=== PATIENT | male | born 1980 | race Caucasian/White ===

== ENCOUNTER 2016-08-03 16:32 | Emergency (ER) | payer MEDICAID ==
[2016-08-03 16:37] VITALS: BP 120/69; PULSE 94; RESP 18; TEMP 98.4; O2SAT 98
--- NOTE | 2016-08-03 17:30 | EDPHY ---
HPI/HX/ROS/PE/MDM Narrative: CHIEF COMPLAINT: Cough HPI: The patient is a homeless 36 y/o male who upon initial assessment is curled up in the position and refusing to answer my questions. Eventually he tells me he's had a cough, subjective fever, and malaise for the last 3-4 days. He has not tried anything for his symptoms. He denies any pertinent medical history. REVIEW OF SYSTEMS: Aside from elements discussed in the HPI, a comprehensive 10-point review of systems was reviewed and is negative. PMH: Denies SOCIAL HISTORY: Homeless PHYSICAL EXAM: General:Patient is alert, in no acute distress. He is well-appearing. ENT:Eyes are normal to inspection. ENT inspection normal. Neck: Normal inspection. Full range of motion. Respiratory:No respiratory distress. Breath sounds normal bilaterally. Cardiovascular: Regular rate and rhythm. Strong peripheral pulses. Normal cap refill. Extremities: Normal appearance. Full range of motion. Neuro: Oriented x3. Normal motor function. Normal sensory function. ED Course: Flu swab and chest x-ray ordered. Study: Chest x-ray Indication: Cough Results: Chest x-ray was obtained. The results of the study are negative. The study was read by the radiologist, Dr. Patterson. I viewed the images myself on the PACS system. Flu swab negative. MDM: I informed the patient that his chest x-ray and flu swab were negative and then will your likely be discharged home. Upon hearing this, patient immediately appeared to wake up and began rapidly yelling at me. He is aggressive and uncooperative during assessment. He demands admission. He states, "I'm just letting you know I'll be back tomorrow cause I'll be sick as fuck! Just wait for me to come back sick as a fucking dog!" He then stood up, dressed himself, and walked out of the ED while cussing at staff. He appears to be seeking housing/secondary gain. - Data Points Laboratory Results: 08/03/16 17:50 Influenza Typ A,B (DFA) NEGATIVE FOR FLU (NEGATIVE) Medications Given: Discontinued Medications Acetaminophen (Tylenol) 1,000 mg PO EDNOW ONE Stop: 08/03/16 17:45 Last Admin: 08/03/16 17:59 Dose: 1,000 mg General Time Seen by Provider: 08/03/16 17:19 Initial Vital Signs: Initial Vital Signs Temperature (C) 36.9 C 08/03/16 16:35 Heart Rate 94 08/03/16 16:35 Respiratory Rate 18 08/03/16 16:35 Blood Pressure 120/69 08/03/16 16:35 O2 Sat (%) 98 08/03/16 16:35 O2 Delivery Mode Room Air Allergies/Adverse Reactions: No Known Allergies Allergy (Verified 08/03/16 16:34) Home Medications: Medication Instructions Recorded NK [No Known Home Meds] 08/03/16 Departure - Departure Disposition: Home, Routine, Self-Care Clinical Impression: Cough Condition: Good Instructions: Acute Cough (ED) Additional Instructions: 1. Use Tylenol or ibuprofen as directed on the packaging if needed for pain or fever. 2. Follow up with your primary care provider for symptoms not improved over the next 2-3 days. Referrals: NONE *PRIMARY CARE P,. [Primary Care Provider] - As per Instructions [facility] [Outside] - As per Instructions Report Scribed for: Amrit Burgos Report Scribed by: Maggie Singh Date of Report: 08/03/16 Time of Report: 17:30 Physician Review and Approval Statement: Portions of this note were transcribed by an ED scribe. I personally performed the history, physical exam, and medical decision making; and confirm the accuracy of the information in the transcribed note.
[2016-08-03] MEDS ORDERED: ACETAMINOPHEN 500 MG TAB PO ONE (17:44)
[2016-08-03] MEDS ORDERED: ACETAMINOPHEN 500 MG TAB ONE (17:45)
--- NOTE | 2016-08-03 17:53 | DX ---
Chest, Two Views at 1712 hours History: Cough, dyspnea. Comparison: Multiple studies from 2016 and 2015 Findings: Cardiac silhouette is within normal range. No pneumonia, congestive heart failure, pleural effusion, or pneumothorax. Impression: No focal pneumonia.
== END 2016-08-03 18:47 | disposition home or self-care (01) ==
DX: R05 Cough (principal)

== ENCOUNTER 2016-11-13 15:52 | Emergency (ER) | payer MEDICAID ==
--- NOTE | 2016-11-13 16:04 | EDPHY ---
H & P Source: Patient, EMS - Medical/Surgical History Hx Asthma: No Hx Chronic Respiratory Disease: No Hx Diabetes: No Hx Cardiac Disease: No Hx Renal Disease: No Hx Cirrhosis: No Hx Alcoholism: No Hx HIV/AIDS: No Hx Splenectomy or Spleen Trauma: No Other PMH: HTN, ETOH abuse, poly substance abuse: today admits to HASH and Meth - Social History Smoking Status: Current every day smoker Time Seen by Provider: 11/13/16 15:53 HPI/ROS: CHIEF COMPLAINT: Psychiatric evaluation HISTORY OF PRESENT ILLNESS: This patient is a homeless 36 year old male who presents to the Emergency Department via EMS for psychiatric evaluation. EMS was called by a bystander who saw the patient standing on a pile of rocks in the middle of the river at [address] [place] [address]. When they arrived, he appeared delusional and was combative, per their report. Upon arrival to the ED, he states, ""I don't give a fuck why they brought me here. I want to be left alone. " When asked what happened, he reports: "Me and God were having a conversation about me moving to [place] when the rescuers showed up. They were going to practice on me." He does not have any focal medical complaints. No fever, chills , chest pain, shortness of breath, palpitations, vomiting, diarrhea, urinary complaints, headache, or lightheadedness. No apparent suicidal or homicidal ideation. He states, "I just want to play my guitar and love people." REVIEW OF SYSTEMS: Aside from elements discussed in the HPI, a comprehensive 10-point review of systems was reviewed and is negative. PAST MEDICAL HISTORY: Unspecified mood disorder (Depakote, Ritalin). Followed by Dr. French Gracia at [facility]. SOCIAL HISTORY: Homeless. Admits to regular meth use "in moderation." Denies recent cocaine or heroine use. Smokes cigarettes daily. Drinks alcohol daily. PHYSICAL EXAM: VITAL SIGNS: Reviewed by me GENERAL: Wearing wet clothing, pressured speech, repeatedly states that he does not want to be here. HEENT: Atraumatic. Eyes: No icterus, no injection, pupils 3mm. Mouth: moist mucous membranes. No erythema or lesions. Neck: supple with no adenopathy. LUNGS: Clear to auscultation bilaterally, no wheezes, rhonchi or rales. CARDIAC: Regular rate and rhythm, no rubs, murmurs or gallops. ABDOMEN: Soft, nontender, nondistended, bowel sounds normal. BACK: No CVA tenderness. EXTREMITIES: No trauma. No edema. Range of motion is normal throughout. NEURO: Alert and oriented, grossly nonfocal. SKIN: Warm and dry, no rash. PSYCHIATRIC: Paranoid, mildly agitated. Portions of this note were transcribed by a medical collections representative. I personally performed a history, physical exam, medical decision making, and confirmed accuracy of information the transcribed note. (Daphne Piper) Constitutional: Initial Vital Signs Temperature (C) 36.7 C 11/13/16 15:58 Heart Rate 81 11/13/16 15:58 Respiratory Rate 18 11/13/16 15:58 Blood Pressure 120/81 H 11/13/16 15:58 O2 Sat (%) 97 11/13/16 15:58 O2 Delivery Mode Room Air Allergies/Adverse Reactions: No Known Allergies Allergy (Verified 08/03/16 16:34) Home Medications: Medication Instructions Recorded NK [No Known Home Meds] 08/03/16 Medical Decision Making ED Course/Re-evaluation: 1558: Took EMS report at bedside. This homeless 36-year-old male presents via EMS for psychiatric evaluation. He admits to meth use today. He smokes and drinks daily. Will proceed with labs and UA for med clearance prior to psychiatric evaluation. Patient placed on M1 hold by police. Patient required Haldol IM as well as Ativan as he became quite agitated and was very threatening. Patient has been placed on an M1 hold by the please. He has been medically cleared. Patient's care was assumed by Dr. Davis at 11:00 p.m.. Beau, from his EPS, is beginning his evaluation. (Daphne Piper) 6:45 a.m.- The patient remained stable overnight. He was evaluated by EPS and did admit to amphetamine use overnight though his urine toxicology was negative. He is certainly more lucid at this point and has not been threatening or agitated whatsoever. This could be effects of the Haldol. The patient will be watched in the emergency room, urine toxicology will be repeated. EPS will re-evaluate the patient in the morning. (Sophie Davis) Differential Diagnosis: Differential diagnosis of this patient was considered including but not limited to chronic psychosis, medication noncompliance, medication side effect, depression and illicit drug use. (Daphne Piper) Other Provider: I assumed care of the patient at 7 o'clock in the morning awaiting psychiatric placement. The patient was evaluated by Psychiatry. He is not suicidal, homicidal or gravely disabled. He presents to the ED with psychotic behavior likely precipitated by recreational drug use. At this point time the patient does contract for safety. He does plan to follow up with [facility] as an outpatient. He is agreeable to returning to the ED for any change in his disposition. The patient's case was discussed with the on-call psychiatrist with [facility] Dr. Cerda who recommends the hold the lifted. (Kyle Mc) - Data Points Laboratory Results: Laboratory Results 11/13/16 16:40 11/13/16 16:40 11/14/16 05:35 Urine Opiates Screen NEGATIVE (NEGATIVE) Urine Barbiturates NEGATIVE (NEGATIVE) Ur Phencyclidine Scrn NEGATIVE (NEGATIVE) Ur Amphetamine Screen NEGATIVE (NEGATIVE) U Benzodiazepines Scrn NON-NEGATIVE H (NEGATIVE) Urine Cocaine Screen NEGATIVE (NEGATIVE) U Marijuana (THC) Screen NEGATIVE (NEGATIVE) Medications Given: Discontinued Medications Haloperidol Lactate (Haldol Injection) 5 mg IM EDNOW ONE Stop: 11/13/16 17:03 Last Admin: 11/13/16 17:22 Dose: 5 mg Lorazepam (Ativan Injection) 1 mg IM EDNOW ONE Stop: 11/13/16 17:14 Last Admin: 11/13/16 17:22 Dose: 1 mg Departure - Departure Disposition: Home, Routine, Self-Care Clinical Impression: Acute psychosis, Polysubstance abuse Condition: Good Instructions: Polysubstance Abuse (ED) Additional Instructions: 1. Please follow-up with the mental health resources provided in the ED today. 2. [facility] does operate a 24/7 psychiatric crisis unit located at [facility] [facility]. The telephone number for the 24 hour crisis center is [phone]. 3. Please return to the ED if you are feeling suicidal, having thoughts of harming yourself/others or should you feel unsafe or have worsening symptoms. Referrals: [facility],. [Clinic] - As per Instructions Report Scribed for: Daphne Piper Report Scribed by: Carrol Jiang Date of Report: 11/13/16 Time of Report: 16:11
[2016-11-13 16:55] LABS: % IMMATURE GRANULYOCYTES 0.3 % (0.0-1.1); ABSOLUTE IMMATURE GRANULOCYTES 0.03 10^3/uL (0.00-0.10); ADD DIFF? NO; ADD MORPH? NO; ADD SCAN? NO; ATYPICAL LYMPHOCYTE FLAG 0 (0-99); FRAGMENT RBC FLAG 0 (0-99); HEMATOCRIT 44.7 % (40.0-51.0); HEMOGLOBIN 15.4 g/dL (13.7-17.5); LEFT SHIFT FLG 0 (0-99); LIPEMIA HEMOLYSIS FLAG 90 (0-99); MEAN CELL HEMOGLOBIN 30.4 pg (27.9-34.1); MEAN CELL HEMOGLOBIN CONCENTR. 34.5 g/dL (32.4-36.7); MEAN CELL VOLUME 88.2 fL (81.5-99.8); MEAN PLATELET VOLUME 8.8 fL (8.7-11.7); PLATELET CLUMPS FLAG 0 (0-99); PLATELET COUNT 274 10^3/uL (150-400); RED BLOOD CELL COUNT 5.07 10^6/uL (4.40-6.38); RED CELL DISTRIBUTION WIDTH 12.8 % (11.5-15.2)
[2016-11-13] MEDS ORDERED: HALOPERIDOL LACT 5 MG/ML INJ IM ONE (17:02)
[2016-11-13] MEDS ORDERED: LORazepam 2 MG/ML INJ ONE (17:10)
[2016-11-13 17:12] LABS: ANION GAP 11 mEq/L (8-16); CALCIUM 9.1 mg/dL (8.5-10.4); CARBON DIOXIDE 27 mEq/l (22-31); CHLORIDE 103 mEq/L (97-110); CREATININE 0.8 mg/dL (0.7-1.3); ETHANOL SERUM < 10 mg/dL (0-10); GLOMERULAR FILTRATION RATE > 60; GLUCOSE 101 mg/dL (70-100); SODIUM 141 mEq/L (134-144)
[2016-11-13] MEDS ORDERED: LORazepam 2 MG/ML INJ IM ONE (17:13)
[2016-11-13 18:16] VITALS: RESP 16
[2016-11-14 11:15] VITALS: BP 118/67; PULSE 74; TEMP 98.1; O2SAT 95
== END 2016-11-14 11:23 | disposition home or self-care (01) ==
LOC: EDUNIT#
DX: F23 Brief psychotic disorder (principal); F19.10 Other psychoactive substance abuse, uncomplicated; I10 Essential (primary) hypertension; F17.200 Nicotine dependence, unspecified, uncomplicated
CPT/HCPCS: 80305; G0480; J2060

== ENCOUNTER 2016-12-04 21:23 | Emergency (ER) | payer MEDICAID ==
[2016-12-04 21:34] VITALS: BP 112/74; PULSE 78; RESP 16; TEMP 97.7; O2SAT 94
--- NOTE | 2016-12-04 21:38 | EDPHY ---
H & P Stated Complaint: intoxicated no c/o sent by pd Time Seen by Provider: 12/04/16 21:33 HPI/ROS: Chief Complaint: Agitation HPI: 36-year-old homeless male was acting erratically and became agitated with police. EMS was called. Patient continued to be agitated and aggressive. Has a history of methamphetamine abuse but denies using it tonight. Patient states he very small amount of alcohol earlier today. He is not clinically intoxicated at this time. Denies falling down. Did not his head. Is not feeling suicidal or homicidal. Is oriented to person place and time. Patient is not under arrest. Is not hallucinating. Is just asking to be discharged. Patient has not been placed on a mental health hold. ROS: 10 point Review of Systems is negative except as noted in the HPI. PMH: Denies Social History: Positive smoking, positive alcohol, denies other drug use Family History: non-contributory Physical Exam: Gen: Awake, Alert, No Distress HEENT: Nose: no rhinorrhea Eyes: PERRLA, EOMI Mouth: Moist mucosa Neck: Supple, no JVD Chest: nontender, lungs clear to auscultation Heart: S1, S2 normal, no murmur Abd: Soft, non-tender, no guarding Back: no CVA tenderness, no midline tenderness Ext: no edema, non-tender Skin: no rash Neuro: CN II-XII intact, Sensation grossly intact, Strength 5/5 in bilateral upper and lower extremities - Personal History Current Tetanus/Diphtheria Vaccine: Unsure Current Tetanus Diphtheria and Acellular Pertussis (TDAP): Unsure - Medical/Surgical History Hx Asthma: No Hx Chronic Respiratory Disease: No Hx Diabetes: No Hx Cardiac Disease: No Hx Renal Disease: No Hx Cirrhosis: No Hx Alcoholism: No Hx HIV/AIDS: No Hx Splenectomy or Spleen Trauma: No Other PMH: HTN, ETOH abuse, poly substance abuse: today admits to HASH and Meth - Social History Smoking Status: Current every day smoker Constitutional: Initial Vital Signs Temperature (C) 36.5 C 12/04/16 21:30 Heart Rate 78 12/04/16 21:30 Respiratory Rate 16 12/04/16 21:30 Blood Pressure 112/74 12/04/16 21:30 O2 Sat (%) 94 12/04/16 21:30 O2 Delivery Mode Room Air Allergies/Adverse Reactions: No Known Allergies Allergy (Verified 08/03/16 16:34) Home Medications: Medication Instructions Recorded NK [No Known Home Meds] 08/03/16 Medical Decision Making ED Course/Re-evaluation: Patient initially quite agitated emergency department he calmed down during my conversation with him. Patient states that he just got upset around up with an interacting with the police. He denies being suicidal or homicidal. He is stating that he is actually just thirsty and hungry. Is not hallucinating. He is not clinically intoxicated. He is oriented to person place and time. There is no evidence of injury or abnormality on physical examination. He is appropriate for discharge to home. He has been encouraged to return for any concerns. Departure - Departure Disposition: Home, Routine, Self-Care Clinical Impression: Agitation Condition: Good Instructions: Anxiety (ED) Additional Instructions: Follow up with the [facility] for any concerns. Return emergency department for thoughts of hurting herself or others, hallucinations, increasing anxiety, chest pain, shortness of breath, or any other concerns. Referrals: NONE *PRIMARY CARE P,. [Primary Care Provider] - As per Instructions [facility],. [Clinic] - As per Instructions
== END 2016-12-04 21:55 | disposition home or self-care (01) ==
LOC: EDUNIT#
DX: R45.1 Restlessness and agitation (principal); I10 Essential (primary) hypertension; F17.200 Nicotine dependence, unspecified, uncomplicated

== ENCOUNTER 2016-12-23 12:47 | Emergency (ER) | payer MEDICAID ==
--- NOTE | 2016-12-23 12:57 | EDPHY ---
H & P Time Seen by Provider: 12/23/16 12:56 - Medical/Surgical History Hx Asthma: No Hx Chronic Respiratory Disease: No Hx Diabetes: No Hx Cardiac Disease: No Hx Renal Disease: No Hx Cirrhosis: No Hx Alcoholism: No Hx HIV/AIDS: No Hx Splenectomy or Spleen Trauma: No Other PMH: HTN, ETOH abuse, poly substance abuse: today admits to HASH and Meth - Social History Smoking Status: Current every day smoker Constitutional: Initial Vital Signs Temperature (C) 36 C 12/23/16 12:47 Heart Rate 124 H 12/23/16 12:47 Respiratory Rate 20 12/23/16 12:47 Blood Pressure 149/106 H 12/23/16 12:47 O2 Sat (%) 97 12/23/16 12:47 O2 Delivery Mode Room Air Allergies/Adverse Reactions: No Known Allergies Allergy (Verified 08/03/16 16:34) Home Medications: Medication Instructions Recorded NK [No Known Home Meds] 08/03/16 Medical Decision Making ED Course/Re-evaluation: CHIEF COMPLAINT: Medical clearance for [facility] HISTORY OF PRESENT ILLNESS: The patient is a 36 y/o male arriving in [employer] custody for a medical clearance for mental health evaluation at the [facility]. The patient has a history of substance abuse and unnamed mental health disorders. Upon assessment, he is standing on his bed yelling at officers while pulling his pants down and grabbing his penis. He is yelling multiple insults at the officers and screams, "tell these faggot ass niggers to leave me alone!" He denies specific medical complaints including chest pain, shortness of breath, or injuries and agrees to go with the officers to [facility] for a mental health evaluation. He is not cooperative with a complete medical exam. REVIEW OF SYSTEMS: A 10 point review of systems was performed and is negative with the exception of the elements mentioned in the history of present illness. PHYSICAL EXAM: General Appearance: Alert and screaming at staff, well hydrated, non-toxic appearing. Head: Atraumatic without scalp tenderness or obvious injury Eyes: Pupils equal, round, reactive to light and accommodation, EOMI, no trauma , no injection. Nose: Atraumatic, no rhinorrhea, clear. Throat: mucus membranes moist. Neck: Supple Respiratory: No distress Cardiovascular: Good capillary refill all extremities. Gastrointestinal: no visible trauma Musculoskeletal: Normal active ROM of all extremities, no visible traumatic. Neurological: Alert, screaming, and interactive. Moves all extremities. Skin: No rashes or visible trauma. Past medical history: Unknown Past surgical history: Unknown Family history: Unknown Social history: In [employer] custody DIFFERENTIAL DIAGNOSIS: The differential diagnosis for the patient's presentation included but was not limited to psychotic episode, schizophrenia, functional and major depression, situational depression, medication side effect , drugs, and alcohol abuse. MEDICAL DECISION MAKING: Patient is in no acute distress and is hemodynamically stable. He is medically clear for [facility] mental health evaluation. Departure - Departure Disposition: Home, Routine, Self-Care Clinical Impression: Psychotic disorder Qualifiers: Psychosis type: other Qualified Code(s): F28 - Other psychotic disorder not due to a substance or known physiological condition Condition: Good Instructions: At-Risk Alcohol Use (ED) Additional Instructions: Medically clear for mental health evaluation at [facility]. Referrals: Patient,NotPresent [Primary Care Provider] - As per Instructions [facility],. [Clinic] - As per Instructions Report Scribed for: Wojciech Del Real Report Scribed by: Maggie Singh Date of Report: 12/23/16 Time of Report: 14:26
[2016-12-23 13:07] VITALS: BP 149/106; PULSE 124; RESP 20; TEMP 96.8; O2SAT 97
== END 2016-12-23 13:06 | disposition home or self-care (01) ==
LOC: EDUNIT#
DX: F28 Other psychotic disorder not due to a substance or known physiological condition (principal); I10 Essential (primary) hypertension; F17.200 Nicotine dependence, unspecified, uncomplicated

== ENCOUNTER 2017-01-18 18:05 | Emergency (ER) | payer MEDICAID ==
[2017-01-18] MEDS ORDERED: LORazepam 2 MG/ML INJ IVP ONE (18:09)
--- NOTE | 2017-01-18 18:35 | EDPHY ---
H & P Stated Complaint: [employer] called EMS for poss. polypharm. pt shivering, incontinent of stool Time Seen by Provider: 01/18/17 18:06 HPI/ROS: CHIEF COMPLAINT: polysubstance abuse HISTORY OF PRESENT ILLNESS: 36-year-old male presents emergency department by EMS after they were called by police for polysubstance abuse. Patient was ambulatory on scene for EMS, tearful and incontinent of urine and stool. Patient is a homeless male well known to our facility with multiple visits for substance abuse who reports at 5 o'clock this morning he took 2 oxycodone, ate mushrooms, used IV meth and heroine. Pt reports he is unsure why he was brought to the emergency department. Patient was given 0.5 mg of Narcan EN route by EMS for reports of oxycodone use this morning. Patient was not sedated and had no response to Narcan. Patient complains of feeling cold. He denies other complaints. REVIEW OF SYSTEMS: A comprehensive 10 point review of systems is otherwise negative aside from elements mentioned in the history of present illness. Source: Patient, EMS - Personal History Current Tetanus/Diphtheria Vaccine: Unsure Current Tetanus Diphtheria and Acellular Pertussis (TDAP): Unsure - Medical/Surgical History Hx Asthma: No Hx Chronic Respiratory Disease: No Hx Diabetes: No Hx Cardiac Disease: No Hx Renal Disease: No Hx Cirrhosis: No Hx Alcoholism: No Hx HIV/AIDS: No Hx Splenectomy or Spleen Trauma: No Other PMH: HTN, ETOH abuse, poly substance abuse: today admits to HASH and Meth - Social History Smoking Status: Current every day smoker Alcohol Use: Heavy Drug Use: Cocaine, Heroin, Other (Methamphetamines, mushrooms) - Physical Exam Exam: Physical Exam Gen: Alert and Oriented, agitated, tearful HEENT: PERRL, moist mucous membranes NECK: no meningismus CV: regular rate and regular rhythm PULM: CTAB, no wheezes ABDOMEN: soft, non tender to palpation, BS present BACK: No CVA tenderness NEURO: Follows commands, no facial asymmetry, moves all extremities EXTREMITIES: normal appearing SKIN: no rash or break in skin on exposed skin PSYCH: Denies suicidal ideations, homicidal ideations, auditory and visual hallucinations. Constitutional: Initial Vital Signs Temperature (C) 36.2 C 01/18/17 18:25 Heart Rate 85 01/18/17 18:25 Respiratory Rate 22 H 01/18/17 18:25 Blood Pressure 142/104 H 01/18/17 18:25 O2 Sat (%) 98 01/18/17 18:25 O2 Delivery Mode Room Air Allergies/Adverse Reactions: No Known Allergies Allergy (Verified 08/03/16 16:34) Home Medications: Medication Instructions Recorded NK [No Known Home Meds] 08/03/16 Medical Decision Making ED Course/Re-evaluation: 36-year-old male presents by ambulance for polysubstance abuse. Patient is well known to our facility 4 visits pertaining to substance abuse. He states he used heroin, meth, mushrooms and oxycodone at 5 o'clock this morning, more than 12 hours prior to arrival. Patient complains of feeling cold. He is awake , alert and agitated. Patient was incontinent of urine and stool. He took a shower in the emergency department and reports feeling much better. Patient requesting to be discharged to the [facility]. Differential Diagnosis: Diagnosis including but not limited to chronic psychosis, medication noncompliance, medication side effect, depression and illicit drug use. Departure - Departure Disposition: Home, Routine, Self-Care Clinical Impression: Polysubstance abuse Condition: Good Instructions: Polysubstance Abuse (ED) Additional Instructions: 1. [facility] does operate a 24/ psychiatric crisis unit located at [facility]. The telephone number for the 24 hour crisis center is [phone]. 2. Please return to the ED if you are feeling suicidal, having thoughts of harming yourself/others or should you feel unsafe or have worsening symptoms. 3. Stop using drugs. Referrals: [facility],. [Clinic] - As per Instructions
[2017-01-18 19:13] VITALS: BP 135/78; PULSE 88; RESP 18; TEMP 97.7; O2SAT 95
== END 2017-01-18 19:13 | disposition home or self-care (01) ==
LOC: EDUNIT#
DX: F19.10 Other psychoactive substance abuse, uncomplicated (principal); I10 Essential (primary) hypertension; F17.200 Nicotine dependence, unspecified, uncomplicated
CPT/HCPCS: 96374

== ENCOUNTER 2017-01-21 23:08 | Emergency (ER) | payer MEDICAID ==
[2017-01-21 23:18] VITALS: O2SAT 97
[2017-01-22] MEDS ORDERED: SULFAMETHOX/TMP 800/160 MG 1 TAB PO SCH
[2017-01-22] MEDS ORDERED: CEPHALEXIN 500 MG CAP PO SCH
--- NOTE | 2017-01-22 00:08 | EDPHY ---
H & P Stated Complaint: RIGHT TOE BUG BITE Time Seen by Provider: 01/21/17 23:46 HPI/ROS: Chief Complaint: Right foot pain HPI: 36-year-old male presenting with several days of worsening right foot pain. Patient thinks he may have gotten a bug bite on his foot police had redness and swelling and warmth. He has been wearing she has a whole time and does not recall specific bite. Does have a history of similar in the past. Denies a history of gout. No fevers or chills. No nausea or vomiting. No chest pain shortness of breath. Patient states that he is homeless and has no money is unable to purchase any medications. He has not follow up with primary care physician. ROS: 10 point Review of Systems is negative except as noted in the HPI. PMH: Denies Social History: Positive smoking, positive alcohol Family History: [non-contributory] Physical Exam: General: Awake, alert, no acute distress Right lower extremity: Right hip, nontender, full range of motion without pain , right knee, nontender, full range of motion of pain, right ankle, nontender, full range of motion without pain. Right foot. Patient has erythema over his great toe extending to his distal midfoot. Is warm to touch. There is no fluctuance or pointing. It is non circumferential. There is no streaking or lymphadenitis. Sensations intact in all dermatomes. Capillary refills less than 3 seconds. : Neuro: Cranial nerves 2-12 intact, strength is 5 in 5 in bilateral upper lower extremities, sensations intact - Personal History Current Tetanus/Diphtheria Vaccine: Yes Current Tetanus Diphtheria and Acellular Pertussis (TDAP): Yes - Medical/Surgical History Hx Asthma: No Hx Chronic Respiratory Disease: No Hx Diabetes: No Hx Cardiac Disease: No Hx Renal Disease: No Hx Cirrhosis: No Hx Alcoholism: No Hx HIV/AIDS: No Hx Splenectomy or Spleen Trauma: No Other PMH: HTN, ETOH abuse, poly substance abuse: today admits to HASH and Meth - Social History Smoking Status: Current every day smoker Constitutional: Initial Vital Signs Temperature (C) 36.6 C 01/21/17 23:10 Heart Rate 80 01/21/17 23:10 Respiratory Rate 18 01/21/17 23:10 Blood Pressure 115/80 01/21/17 23:10 O2 Sat (%) 97 01/21/17 23:10 O2 Delivery Mode Room Air Allergies/Adverse Reactions: No Known Allergies Allergy (Verified 01/21/17 23:18) Home Medications: Medication Instructions Recorded Cephalexin [Keflex (*)] 500 mg PO Q6H #40 cap 01/22/17 Sulfamethox/Tmp 800/160 mg 1 tab PO BID #20 tab 01/22/17 [Bactrim Ds] Medical Decision Making ED Course/Re-evaluation: 36-year-old homeless male with cellulitis of his right foot. Will start him on Keflex and Bactrim with instructions to follow up with [facility] in 2 days. He will return here if symptoms continue to worsen. He does not have any tenderness on the plantar aspect of his foot or bony tenderness suggestive of osteomyelitis at this time. Departure - Departure Disposition: Home, Routine, Self-Care Clinical Impression: Cellulitis Condition: Good Instructions: Cellulitis (ED) Additional Instructions: Make sure to take your full course of antibiotics. Follow up with [facility] in 2 days for re-evaluation. Return to the emergency department if the redness spreads further up your foot, you have increasing pain, numbness or weakness, fevers, chills, or any other concerns Prescriptions: Cephalexin [Keflex (*)] 500 mg PO Q6H #40 cap Sulfamethox/Tmp 800/160 mg [Bactrim Ds] 1 tab PO BID #20 tab
[2017-01-22 01:06] VITALS: BP 100/54; PULSE 60; RESP 16; TEMP 98.2
== END 2017-01-22 01:05 | disposition home or self-care (01) ==
DX: L03.115 Cellulitis of right lower limb (principal); I10 Essential (primary) hypertension; F17.200 Nicotine dependence, unspecified, uncomplicated

== ENCOUNTER 2017-08-06 16:03 | Emergency (ER) | payer MEDICAID ==
[2017-08-06 16:15] VITALS: BP 121/81; PULSE 109; RESP 18; TEMP 98.1; O2SAT 96
== END 2017-08-06 17:36 | disposition left against medical advice (07) ==
DX: Z53.21 Procedure and treatment not carried out due to patient leaving prior to being seen by health care provider (principal)

== ENCOUNTER 2017-08-06 23:40 | Inpatient (IN) | payer MEDICAID ==
--- NOTE | 2017-08-06 23:51 | EDPHY ---
H & P Stated Complaint: Groin rash, generalized pain Time Seen by Provider: 08/06/17 23:47 HPI/ROS: Chief Complaint: Groin pain, general malaise HPI: 37-year-old homeless male being brought in [place] the [place]. Patient has been complaining of worsening spreading infection in his genital area for the last 1-2 weeks. He is having increasing pain. He has not seen a physician for this. He does admit that he is a chronic meth user and has been drying up water from [place] to inject his methamphetamine. He thinks that might be causing the lesions on his arms. Denies injecting is femoral region. Some subjective fevers and chills. No nausea or vomiting. No abdominal pain.. No cough. No lightheadedness or fainting. Denies any alcohol use. ROS: 10 point Review of Systems is negative except as noted in the HPI. PMH: Homeless, chronic meth abuse Social History: Positive smoking, no alcohol, positive meth and marijuana use Family History: non-contributory Physical Exam: Gen: Awake, Alert, No Distress HEENT: Nose: no rhinorrhea Eyes: PERRLA, EOMI Mouth: Moist mucosa Neck: Supple, no JVD Chest: nontender, lungs clear to auscultation Heart: S1, S2 normal, no murmur Abd: Soft, non-tender, no guarding Genital: Extensive erythema overlying his scrotum, volar portion of his penis and medial left thigh. I do not appreciate any crepitus or gas. There is discharge and is quite malodorous. Back: no CVA tenderness, no midline tenderness Ext: no edema, non-tender Skin: no rash Neuro: CN II-XII intact, Sensation grossly intact, Strength 5/5 in bilateral upper and lower extremities - Personal History Current Tetanus Diphtheria and Acellular Pertussis (TDAP): No - Medical/Surgical History Hx Asthma: No Hx Chronic Respiratory Disease: No Hx Diabetes: No Hx Cardiac Disease: No Hx Renal Disease: No Hx Cirrhosis: No Hx Alcoholism: Yes Hx HIV/AIDS: No Hx Splenectomy or Spleen Trauma: No Other PMH: HTN, ETOH abuse, poly substance abuse: - Social History Smoking Status: Current every day smoker Constitutional: Initial Vital Signs Temperature (C) 36.8 C 08/06/17 23:43 Heart Rate 78 08/06/17 23:43 Respiratory Rate 18 08/06/17 23:43 Blood Pressure 126/88 H 08/06/17 23:43 O2 Sat (%) 97 08/06/17 23:43 O2 Delivery Mode Room Air Allergies/Adverse Reactions: No Known Allergies Allergy (Verified 08/06/17 23:43) Home Medications: Medication Instructions Recorded NK [No Known Home Meds] 08/06/17 Medical Decision Making ED Course/Re-evaluation: 37-year-old male with a perineal cellulitis. Blood cultures have been sent. I have ordered IV vancomycin. I do not appreciate any gas at this time suggestive of 48 gangrene but this is certainly concerning. An ultrasound has been ordered. I have discussed with Dr. [place], hospitalist. He will admit for continued care. Departure - Departure Disposition: [facility] Inpatient Acute Clinical Impression: Cellulitis of perineum Condition: Fair Referrals: NONE *PRIMARY CARE P,. [Primary Care Provider] - As per Instructions
[2017-08-06] MEDS ORDERED: VANCOMYCIN HCL/NORMAL SALINE 250 ML IV ONE (23:56)
[2017-08-07] MEDS ORDERED: ONDANSETRON DISINTEGRATING 4 MG TAB PO PRN (00:06)
[2017-08-07] MEDS ORDERED: ONDANSETRON 4 MG/2 ML VIAL IVP PRN (00:06)
[2017-08-07] MEDS ORDERED: ACETAMINOPHEN 325 MG TAB PO PRN (00:06)
--- NOTE | 2017-08-07 00:29 | PDGENHP ---
History and Physical - Chief Complaint Inguinal pain - History of Present Illness 37 yo M w/ hx of IVDU presents w/ inguinal redness and pain. Patient first noticed redness in his groin about 5 days ago. This progressed until today when the pain became unbearable. He uses IV meth, most recently yesterday. History Information - Allergies/Home Medication List Allergies/Adverse Reactions: No Known Allergies Allergy (Verified 08/06/17 23:43) Home Medications: NK [No Known Home Meds] 08/06/17 [Last Taken Unknown] I have personally reviewed and updated: family history, medical history - Past Medical History no pertinent PMH - Surgical History Reports: no pertinent surgical hx - Family History Additional family history: Denies - Social History Smoking Status: Current every day smoker Drug Use: Other (IV Methamphetamines ) Review of Systems Review of Systems: ROS: 10pt was reviewed & negative except for what was stated in HPI & below Physical Exam Physical Exam: Temp Pulse Resp BP Pulse Ox 36.8 C 78 18 126/88 H 97 08/06/17 23:43 08/06/17 23:43 08/06/17 23:43 08/06/17 23:43 08/06/17 23:43 Constitutional: appears nourished, unkempt Eyes: PERRL, EOMI Ears, Nose, Mouth, Throat: moist mucous membranes, no oral mucosal ulcers Cardiovascular: regular rate and rhythym, no murmur, rub, or gallop Respiratory: no respiratory distress, clear to auscultation Gastrointestinal: normoactive bowel sounds, soft, non-tender abdomen Skin: erythema (Erythema bilateral groins, satelite lesions noted) Neurologic: AAOx3, CN II-XII Intact Psychiatric: interacting appropriately, not anxious Lab Data & Imaging Review 08/07/17 00:06 08/07/17 00:06 Assessment & Plan Assessment: 37 yo M w/ hx of IVDU presents w/ inguinal cellulitis. Plan: 1. Cellulitis - Involving bilateral groins and scrotum. This likely started as tinea cruris and is now superinfected. Will cover MRSA noting hx of IVDU. - Vancomycin IV - Blood cultures - Scrotal U/S to rule out gas forming infection 2. Tinea Cruris - I suspect this was the initial etiology. - Clotrimazole 1% cream BID 3. Hx IVDU - Hx of IV meth use, blood cultures ordered. Diet - Regular Code - Full Ppx - LMWH Dispo - Admit under observation status
[2017-08-07 00:33] LABS: PLATELET COUNT 312 10^3/uL (150-400)
[2017-08-07] MEDS: oxyCODONE IR 5 MG TAB PO PRN ×3 (02:08→19:20)
[2017-08-07 05:11] LABS: PLATELET COUNT 312 10^3/uL (150-400)
[2017-08-07] MEDS: ENOXAPARIN 40 MG/0.4 ML SYR SC SCH (08:25)
[2017-08-07] MEDS: CLOTRIMAZOLE 1% 15 GM CRTUBE TP SCH ×2 (08:25→21:28)
[2017-08-07] MEDS ORDERED: VANCOMYCIN HCL/NORMAL SALINE 250 ML IV SCH (08:30)
--- NOTE | 2017-08-07 13:14 | HOSPPROG ---
Hospitalist Progress Note Assessment/Plan: # groin cellulitis - suspect secondary to candidal infection, but may be purely candidal - erythema marked today - no evidence for keanu's gangrene, deeper infection at this point - cont vanc IV, clotrimazole # testicular microlithiasis - consider urology f/u as outpatient # IVDU - check HIV and hepatitis Objective: Vital Signs Temp Pulse Resp BP Pulse Ox 37.2 C 66 16 124/73 H 95 08/07/17 11:24 08/07/17 11:24 08/07/17 11:24 08/07/17 11:24 08/07/17 11:24 Laboratory Results 08/07/17 04:52 08/07/17 04:52 08/06/17 08/07/17 08/08/17 05:59 05:59 05:59 Intake Total 168 Balance 168 ICD10 Worksheet Patient Problems: Problems Problem Status Onset Community acquired pneumonia Acute Bacteremia Acute Sepsis Acute Intussusception Acute Cellulitis of perineum Acute
--- NOTE | 2017-08-07 16:23 | PDMN ---
Medical Necessity Medical necessity: change to IP; est los>2mn (SOC 08/06/17 in ED) for groin cellulitis, suspected r/t saira infection; requires IV abx; comorbid testicular microlithiasis, and IVDU; per order and progress note 08/07/17
[2017-08-07 16:55] LABS: HEPATITIS B SURFACE ANTIGEN NEGATIVE (NEGATIVE)
[2017-08-07 17:01] LABS: HEPATITIS A ANTIBODY IGM (BCH) NEGATIVE (NEGATIVE); HEPATITIS B CORE AB IGM NEGATIVE (NEGATIVE)
[2017-08-07 17:12] LABS: HEPATITIS C ANTIBODY TOTAL NEGATIVE (NEGATIVE); HIV TYPE 1 AND 2 NEGATIVE (NEGATIVE)
--- NOTE | 2017-08-07 17:24 | ASMTCMCOM ---
CM Note CM Note Notes: Pt in with groin cellulitis, currently uses IV drugs. Per RN will need IV abx, uncertain if will get PICC line. He is homeless, will likely dc independent, CM w/f. DC Plan: TBD Date Signed: 08/07/2017 05:23 PM Electronically Signed By:Yamile Anders RN
[2017-08-07] MEDS: VANCOMYCIN HCL/NORMAL SALINE 250 ML IV SCH (19:21)
[2017-08-08] MEDS ORDERED: SULFAMETHOX/TMP 800/160 MG 1 TAB PO SCH
[2017-08-08 05:25] LABS: PLATELET COUNT 343 10^3/uL (150-400)
[2017-08-08 08:22] VITALS: RESP 14
[2017-08-08] MEDS: CLOTRIMAZOLE 1% 15 GM CRTUBE TP SCH (09:25)
[2017-08-08] MEDS: VANCOMYCIN HCL/NORMAL SALINE 250 ML IV SCH (09:25)
[2017-08-08] MEDS: oxyCODONE IR 5 MG TAB PO PRN (09:25)
[2017-08-08] MEDS: ENOXAPARIN 40 MG/0.4 ML SYR SC SCH (09:25)
[2017-08-08 12:08] VITALS: BP 115/70; PULSE 75; TEMP 98.7; O2SAT 95
--- NOTE | 2017-08-08 18:00 | GDS ---
[f rep st] DISCHARGE SUMMARY DIAGNOSES: 1. Groin cellulitis, likely secondary infection over a tinea cruris. 2. Ongoing IV drug use. PROCEDURES DONE: Testicular ultrasound. HOSPITAL COURSE: Joel is a 37-year-old with a history of ongoing IV drug use, who presents with ing uinal redness and pain. He first noticed it about 5 days prior to admission, and the pain became unb earable. He had a testicular ultrasound which ruled out any obvious abnormalities in his testicle or scrotum, and was placed on IV Vancomycin as well as treatment for tinea with clotrimazole. Over the course of his hospitalization, his symptoms improved significantly to a point where the swelling was down and his pain was tolerable. He will a complete 7 days of antibiotics with Bactrim as well as n ystatin powder. He is to keep the area dry and clean. DISCHARGE MEDICATIONS: Please see discharge medication form. FOLLOWUP: He should schedule an appointment with [facility] for followup. Total time since with this patient on the day of discharge and coordination of care is 35 minutes. Indication. /[id number]/MODL
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
== END 2017-08-08 14:55 | disposition home or self-care (01) | DRG 603 ==
LOC: EDUNIT# → F3E 08-07 01:01 → OBSVTOIN 08-07 16:12
PROVIDERS: ADMIT Student in an Organized Health Care Education/Training Program; ATTEND Internal Medicine
DX: L03.314 Cellulitis of groin (principal); B35.6 Tinea cruris; F19.10 Other psychoactive substance abuse, uncomplicated; N50.89 Other specified disorders of the male genital organs; I10 Essential (primary) hypertension; F17.200 Nicotine dependence, unspecified, uncomplicated; Z59.0 Homelessness
CPT/HCPCS: G0472; J1650; J3370

== ENCOUNTER 2017-08-28 10:16 | Emergency (ER) | payer MEDICAID ==
[~2017-08-28 10:16] MED LIST: CEPHALEXIN 500 MG CAP PO SCH; CLOTRIMAZOLE 1% 15 GM CRTUBE TP SCH; SULFAMETHOX/TMP 800/160 MG 1 TAB PO SCH
[2017-08-28 10:23] VITALS: BP 162/82; PULSE 93; RESP 19; TEMP 98.9; O2SAT 91
[2017-08-28] MEDS ORDERED: IBUPROFEN 600 MG TAB PO ONE (11:06)
[2017-08-28] MEDS ORDERED: SULFAMETHOX/TMP 800/160 MG 1 TAB PO ONE (11:06)
[2017-08-28] MEDS ORDERED: CEPHALEXIN 500 MG CAP PO ONE (11:06)
--- NOTE | 2017-08-28 11:06 | EDPHY ---
General Time Seen by Provider: 08/28/17 10:35 Narrative: CHIEF COMPLAINT: Rash, pain HISTORY OF PRESENT ILLNESS: Patient complains of rash to the arms, legs, buttocks and genitals. It is a painful rash. It has been present ever since he was treated here for the same 2 weeks ago. He reports completing antibiotic medication at time of discharge on August 09. He says that it improved for a while it has come back. He points to multiple spots on his legs, back, buttock and underneath the scrotum. It is a red circular rash. No fever. No position of comfort. He denies taking any pain medications for this. He did not follow up with [facility] at time of discharge. No other medications taken. No other associated complaints or modifying factors. REVIEW OF SYSTEMS: Ten systems reviewed and are negative unless otherwise noted in the HPI PCP: [facility] SPECIALISTS: None PAST MEDICAL HISTORY: Tinea crura and cellulitis PAST SURGICAL HISTORY: No recent surgeries SOCIAL HISTORY: IV drug abuse by chart review. Denies smoking or alcohol use. FAMILY HISTORY: Noncontributory EXAMINATION General Appearance: Alert, no distress, unkempt Head: normocephalic, atraumatic Eyes: Pupils equal and round, no conjunctival pallor or injection ENT, Mouth: Mucous membranes moist Neck: Normal inspection, supple, non-tender Respiratory: No retractions or distress. Cardiovascular: Regular rate. Good signs of perfusion Gastrointestinal: Abdomen is soft and nondistended. : Circumcised penis. There is attending occur bilaterally. There is no tenderness of the scrotum. There is no fluctuance, necrosis or abscess noted. Neurological: A&O, nonfocal, normal steady gait Skin: Warm and dry. Multiple excoriations about the arms and legs with mild erythema. No fluctuance to them. There is an excoriation and area of dermatitis to the gluteal cleft that does not have any fluctuance. No notable cellulitis. There is tinea occur at the bilateral groin and beneath the scrotum. There is no crepitus. No gangrene. No fluctuance beneath the scrotum. Extremities: Nontender, no pedal edema Psychiatric: Mood and affect normal DIFFERENTIAL DIAGNOSES: Including but not limited to tinea cruris, excoriation, secondary cellulitis, abscess, torsion, 48 gangrene MDM: 11:05 a.m. Excoriated scan with likely secondary infections developing. There is no abscess. No warmth or septic joint. No evidence of DVT. No evidence of Enriqueta gangrene. There is tinea crura bilaterally. I have ordered ultrasound of the scrotum and testicles. I have ordered Bactrim, Keflex and clotrimazole to be provided by medication assistance program. 11:40 a.m. Notified by plastic surgery technician that the patient is declining/refusing the ultrasound of the testicles of ordered. I have discussed this with the patient. He voice his frustration that I was not admitting him to the hospital for further treatment. He continues to decline the ultrasound. I discussed the risks and benefits with him and he is willing to assume the wrist. I have a very low clinical suspicion that there is anything abnormal other than the skin changes as above. I do feel he has tinea crura and likely secondarily infected excoriated skin. I do not see any extensive cellulitis. I do not see any evidence of abscess. I do not see any evidence of 48 days by clinical examination. I do not see any evidence of DVT, septic joint or necrosis. I do feel he is stable for discharge home and will provide all the medications he needs. I would like him to [facility] with [facility] for repeat examination. I would like him to return here in 24-48 hours if no improvement. SUPERVISION: Patient was independently examined, but I discussed the case with my secondary supervising physician Dr. Solano - History Smoking Status: Current every day smoker - Objective Vital Signs: Initial Vital Signs Temperature (C) 98.9 F 08/28/17 10:21 Heart Rate 93 08/28/17 10:21 Respiratory Rate 19 08/28/17 10:21 Blood Pressure 162/82 H 08/28/17 10:21 O2 Sat (%) 91 L 08/28/17 10:21 O2 Delivery Mode Room Air Allergies/Adverse Reactions: No Known Allergies Allergy (Verified 08/06/17 23:43) Home Medications: Medication Instructions Recorded Clotrimazole 1% [Lotrimin 1%] 1 dominga TP BID #30 gr 08/08/17 Sulfamethox/Tmp 800/160 mg 1 ea PO BID tab 08/08/17 [Bactrim DS] Sulfamethox/Tmp 800/160 mg 1 tab PO BID #10 tab 08/08/17 [Bactrim Ds] oxyCODONE IR [Oxycodone Ir (*)] 5 - 10 mg PO Q4HRS PRN #10 tab 08/08/17 Cephalexin [Keflex (*)] 500 mg PO QID #40 cap 08/28/17 Clotrimazole 1% [Lotrimin 1%] 1 dom[place]a TP BID #1 tu 08/28/17 Sulfamethox/Tmp 800/160 mg 1 tab PO BID 10 Days tab 08/28/17 [Bactrim Ds] Medications Given: Discontinued Medications Cephalexin HCl (Keflex) 500 mg PO EDNOW ONE PRN Reason: Protocol Stop: 08/28/17 11:07 Last Admin: 08/28/17 11:17 Dose: 500 mg Ibuprofen (Motrin) 600 mg PO EDNOW ONE Stop: 08/28/17 11:07 Last Admin: 08/28/17 11:17 Dose: 600 mg Trimethoprim/Sulfamethoxazole (Bactrim Ds) 1 ea PO EDNOW ONE PRN Reason: Protocol Stop: 08/28/17 11:07 Last Admin: 08/28/17 11:17 Dose: 1 ea Departure - Departure Disposition: Home, Routine, Self-Care Clinical Impression: Multiple excoriations, Dermatitis, Tinea cruris Condition: Good Instructions: Tinea Corporis (ED), Jock Itch (ED) Additional Instructions: 1. Clotrimazole apply twice daily to affected area for the next 14 days. This medication has been provided by the medication assistance program 2. Bactrim as prescribed for 10 days to completion. This medication has been provided you by the medication assistance program 3. Keflex as prescribed for 10 days to completion. This medication has been provided by the medication assistance program 4. You need to call [facility] for outpatient follow-up Referrals: Eunice Alexis MD [Primary Care Provider] - As per Instructions Prescriptions: Cephalexin [Keflex (*)] 500 mg PO QID #40 cap Clotrimazole 1% [Lotrimin 1%] 1 dom[place]a TP BID #1 tu Sulfamethox/Tmp 800/160 mg [Bactrim Ds] 1 tab PO BID 10 Days tab
== END 2017-08-28 11:53 | disposition home or self-care (01) ==
DX: L30.9 Dermatitis, unspecified (principal); B35.6 Tinea cruris; F42.4 Excoriation (skin-picking) disorder; F17.200 Nicotine dependence, unspecified, uncomplicated

== ENCOUNTER 2017-11-17 07:06 | Emergency (ER) | payer MEDICAID ==
--- NOTE | 2017-11-17 07:29 | EDPHY ---
H & P Stated Complaint: vomiting, agitated, hypoglycemia Time Seen by Provider: 11/17/17 07:19 - Personal History Current Tetanus/Diphtheria Vaccine: Unsure Current Tetanus Diphtheria and Acellular Pertussis (TDAP): Unsure - Medical/Surgical History Hx Asthma: No Hx Chronic Respiratory Disease: No Hx Diabetes: No Hx Cardiac Disease: No Hx Renal Disease: No Hx Cirrhosis: No Hx Alcoholism: Yes Hx HIV/AIDS: No Hx Splenectomy or Spleen Trauma: No Other PMH: HTN, ETOH abuse, poly substance abuse: - Social History Smoking Status: Current every day smoker Constitutional: Initial Vital Signs Temperature (C) 36.6 C 11/17/17 07:06 Heart Rate 52 L 11/17/17 07:06 Respiratory Rate 14 11/17/17 07:06 Blood Pressure 140/86 H 11/17/17 07:06 O2 Sat (%) 95 11/17/17 07:06 O2 Delivery Mode Room Air Allergies/Adverse Reactions: No Known Allergies Allergy (Verified 11/17/17 07:15) Home Medications: Medication Instructions Recorded Clotrimazole 1% [Lotrimin 1%] 1 dominga TP BID #30 gr 08/08/17 Sulfamethox/Tmp 800/160 mg 1 ea PO BID tab 08/08/17 [Bactrim DS] Sulfamethox/Tmp 800/160 mg 1 tab PO BID #10 tab 08/08/17 [Bactrim Ds] oxyCODONE IR [Oxycodone Ir (*)] 5 - 10 mg PO Q4HRS PRN #10 tab 08/08/17 Cephalexin [Keflex (*)] 500 mg PO QID #40 cap 08/28/17 Clotrimazole 1% [Lotrimin 1%] 1 dominga TP BID #1 tu 08/28/17 Sulfamethox/Tmp 800/160 mg 1 tab PO BID 10 Days tab 08/28/17 [Bactrim Ds] Medical Decision Making ED Course/Re-evaluation: CHIEF COMPLAINT: Found down street vomiting water HISTORY OF PRESENT ILLNESS: 37-year-old gentleman who is homeless. We have taking care of him several times over the past several years. He has a very significant IV drug user and methamphetamine addict. Bystanders called because the patient was at the [place]. Patient drink a cup of water and then vomited the water in front of the medics and said he was vomiting and wanted to be taken the hospital. He was fairly agitated and somewhat belligerent and therefore the medics gave him 2.5 mg of Versed EN route. The patient is unable to speak to me at this time. REVIEW OF SYSTEMS: Unable to obtain since the patient received Versed he cannot talk he is stable but sleeping PHYSICAL EXAM: HR, BP, O2 Sat, RR. Temp noted General Appearance: Alert, well hydrated, appropriate, and non-toxic appearing. Head: Atraumatic without scalp tenderness or obvious injury Eyes: Pupils equal, round, reactive to light and accommodation, EOMI, no trauma , no injection. Ears: Clear bilaterally, no perforation, normal landmarks Nose: Atraumatic, no rhinorrhea, clear. Throat: There is no erythema or exudates, no lesions, normal tonsils, mucus membranes moist. Neck: Supple, 2+ carotid upstroke, nontender, no lymphadenopathy. Respiratory: No retractions, no distress, no wheezes, and no accessory muscle use. Lungs are clear to auscultation bilaterally. Cardiovascular: Regular rate and rhythm, no murmurs, rubs, or gallops. Bilateral carotid, radial, dorsalis pedis, and posterior tibial pulses intact. Good capillary refill all extremities. Gastrointestinal: Abdomen is soft, nontender, non-distended, no masses, no rebound, no guarding, no peritoneal signs. Musculoskeletal: Normal active ROM of all extremities, atraumatic. Neurological: Alert, appropriate, and interactive. The patient has normal DTRs and non-focal cranial nerves, motor, sensory, and cerebellar exam. Skin: No rashes, good turgor, no nodules on palpation. Past medical history: Methamphetamine abuse, history of cellulitis, other IV drug abuse, mental health issues Past surgical history: Unknown and unobtainable Family history: Unobtainable Social history: From past records patient is an IV drug abuser lives on the streets he is not employed DIFFERENTIAL DIAGNOSIS: The differential diagnosis for the patient's nausea and vomiting included but was not limited to gastroenteritis, gastritis, appendicitis, malingering, and medication side effect. MEDICAL DECISION MAKING: This patient according to the medics is essentially malingering. He is just trying to get a ride to the hospital to have a place to stay and get food and water. Now I can't really wake him up because he received some Versed EN route. The medic was clear that he saw the patient drink a cup of water and then fake vomit in front of him. Patient had no specific complaints. Patient was stable in route from a vital signs standpoint. Patient seemed to be a bit agitated and belligerent and therefore he was given 2.5 mg of Versed. Patient was found to have a slightly low blood sugar. A D10 drip was started and the patient's blood sugars now 140. [id number]: Reassessed patient, he is feeling better. Return precautions provided; patient is comfortable with this plan. - Data Points Laboratory Results: 11/17/17 07:25 POC Glucose 143 mg/dL H mg/dL (70-100) Point of Care Test Results: 11/17/17 07:25 POC Glucose 143 H Departure - Departure Disposition: Home, Routine, Self-Care Clinical Impression: Polysubstance abuse Condition: Good Instructions: Polysubstance Abuse (ED) Additional Instructions: Please refrain from drugs. Referrals: [facility],. [Clinic] - As per Instructions
[2017-11-17] MEDS ORDERED: ONDANSETRON 4 MG/2 ML VIAL ONE (09:23)
[2017-11-17] MEDS ORDERED: ONDANSETRON 4 MG/2 ML VIAL IVP ONE (09:24)
[2017-11-17 09:26] VITALS: BP 127/81
== END 2017-11-17 09:45 | disposition home or self-care (01) ==
LOC: EDUNIT#
DX: F19.10 Other psychoactive substance abuse, uncomplicated (principal); I10 Essential (primary) hypertension; F17.200 Nicotine dependence, unspecified, uncomplicated
CPT/HCPCS: 96374; J2405